=== PATIENT | female | born 1965 | race Caucasian/White ===

== ENCOUNTER 2019-04-29 12:53 | Inpatient (IN) | payer OTHER ==
[~2019-04-29] VITALS: Ht 165.1 cm; Wt 82.9 kg
[2019-04-29 13:26] LABS: BASOPHILS # (AUTO) 0.02 x10^3/uL (0-0.1); BASOPHILS % (AUTO) 0 % (0-1); EOSINOPHILS # (AUTO) 0.02 x10^3/uL (0-0.4); EOSINOPHILS % (AUTO) 0 % (1-7); LYMPHOCYTES # (AUTO) 1.18 x10^3/uL (1-3.4); LYMPHOCYTES % (AUTO) 24 % (22-44); MD NO; MEAN CORPUSCULAR HGB CONC 34.5 g/dL (32.4-35.8); MEAN CORPUSCULAR VOLUME 89.8 fL (80-100); MEAN PLATELET VOLUME 7.9 fL (7.4-10.4); MONOCYTES # (AUTO) 0.25 x10^3/uL (0.2-0.8); MONOCYTES % (AUTO) 5 % (2-9); NEUTROPHILS # (AUTO) 3.38 x10^3/uL (1.8-6.8); NEUTROPHILS % (AUTO) 70 % (42-75); PLATELET COUNT 214 x10^3/uL (130-400); RED BLOOD COUNT 3.84 x10^6/uL (3.82-5.3)
[2019-04-29] MEDS ORDERED: SODIUM CHLORIDE FLUSH 10ML SYR IVF ONE (13:30)
--- NOTE | 2019-04-29 13:32 | NUR ---
IT INFRASTRUCTURE CONSULTANT: PT TO ROOM FROM [facility]
[2019-04-29 13:34] LABS: ALANINE AMINOTRANSFERASE 17 U/L (12-78); ALBUMIN 2.9 g/dL (3.4-5.0); ANION GAP 4 mmol/L (5-15); CALCIUM 8.3 mg/dL (8.5-10.1); CHLORIDE 111 mmol/L (98-107); CREATININE 0.98 mg/dL (0.55-1.02)
--- NOTE | 2019-04-29 13:36 | NUR ---
PT PRESENTED TO [facility] WITH GI BLEED X 3 TODAY. PT HAD A COLONSCOPY ON MONDAY. PT WITH BRIGHT RED BLOOD IN STOOL. PT A&OX4. PT PLACED IN ROOM AND PLACED ON BP AND CONT. PULSE OXIMETER. ASSESSMENT COMPLETED. AWAITING MD. CALL LIGHT IN REACH
[2019-04-29 13:37] LABS: ALKALINE PHOSPHATASE 71 U/L (45-117); BILIRUBIN,TOTAL 0.4 mg/dL (0.2-1.0); TOTAL PROTEIN 6.4 g/dL (6.4-8.2)
[2019-04-29] MEDS ORDERED: OMEP40CA6 PO (13:44)
[2019-04-29] MEDS ORDERED: AMIT10TA PO (13:44)
[2019-04-29] MEDS ORDERED: OXYB5TAB PO (13:45)
[2019-04-29] MEDS ORDERED: CETI1TAB6 PO (13:45)
[2019-04-29 14:21] LABS: MICROSCOPIC AUTO
[2019-04-29 14:23] LABS: CULTURE INDICATED? YES
--- NOTE | 2019-04-29 14:35 | NUR ---
IV NEEDED FOR CT
--- NOTE | 2019-04-29 14:51 | NUR ---
PT UOB TO BATHROOM X3, PASSING BLOOD RECTALLY. ONE EPISODE WAS A LARGE AMOUNT. MD SINHA
[2019-04-29] MEDS ORDERED: OMNIPAQUE 350 MG/ML, 100ML BOTTLE ONE (15:14)
--- NOTE | 2019-04-29 15:18 | NUR ---
CT COMPLETED. NO DISTRESS
[2019-04-29 15:50] LABS: CLOSTRIDIUM DIFFICILE ANTIGEN POSITIVE; CLOSTRIDIUM DIFFICILE TOXIN NEGATIVE (Negative)
--- NOTE | 2019-04-29 16:14 | NUR ---
ISO CART IN PLACE AND COMMODE PLACED IN ROOM. PT GIVEN HANDOUT ON CDIFF
[2019-04-29] MEDS ORDERED: METRONIDAZOLE PMX 500MG/100ML 100 ML IV ONE (16:30)
--- NOTE | 2019-04-29 16:37 | NUR ---
PROVIDED SNACK AND DRINKS AFTER MD OK. PT AWARE OF INTENTION TO ADMIT
[2019-04-29] MEDS ORDERED: METRONIDAZOLE PMX 500MG/100ML 100 ML ONE (16:38)
[2019-04-29] MEDS ORDERED: morphine SULFATE 10 MG/ML, 1ML IVPush PRN (18:00)
[2019-04-29] MEDS ORDERED: ONDANSETRON 2MG/ML, 2ML IVPush PRN (18:00)
[2019-04-29] MEDS ORDERED: ACETAMINOPHEN 325 MG TABLET PO PRN (18:00)
[2019-04-29] MEDS ORDERED: LABETALOL 5MG/ML, 20ML IVPush PRN (18:00)
[2019-04-29] MEDS ORDERED: hydrALAzine 20 MG/ML, 1ML IVPush PRN (18:00)
[2019-04-29] MEDS ORDERED: HYDROcodone/APAP 5/325 TABLET PO PRN (18:00)
--- NOTE | 2019-04-29 18:01 | NUR ---
REPORT TO JOSEPH FU. PT TO BE TRANSPORTED TO FLOOR
[2019-04-29 18:50] VITALS: BP 104/65
[2019-04-29] MEDS: CETIRIZINE HCL PO SCH (21:00)
[2019-04-29] MEDS: [UNRECOGNIZED DRUG - OTHER] PO SCH (21:00)
[2019-04-29] MEDS: PSEUDOEPHEDRINE PO SCH (21:00)
[2019-04-29] MEDS: AMITRIPTYLINE 10 MG TABLET PO SCH (21:34)
[2019-04-29] MEDS: CALCIUM CARBONATE 500 MG TABLET PO SCH (21:34)
[2019-04-29] MEDS: OXYBUTYNIN CHLORIDE 5 MG TABLET PO SCH (21:34)
[2019-04-29] MEDS: VANCOMYCIN 50 MG/ML ORAL SUSP PO SCH (21:35)
[2019-04-29] MEDS: OMEPRAZOLE 20 MG CAPSULE.DR PO SCH (21:35)
[2019-04-29] MEDS: POTASSIUM CHLORIDE 20 MEQ in LACTATED RINGERS 1,000 ML IV SCH (21:39)
[2019-04-29] MEDS ORDERED: GOLYTELY 4,000ML ORAL.SOL PO ONE (22:00)
[2019-04-30 01:16] VITALS: BP 129/80
[2019-04-30] MEDS: VANCOMYCIN 50 MG/ML ORAL SUSP PO SCH ×4 (03:17→22:27)
[2019-04-30 06:01] LABS: BASOPHILS # (AUTO) 0.02 x10^3/uL (0-0.1); BASOPHILS % (AUTO) 0 % (0-1); EOSINOPHILS # (AUTO) 0.09 x10^3/uL (0-0.4); EOSINOPHILS % (AUTO) 2 % (1-7); LYMPHOCYTES % (AUTO) 34 % (22-44); MD NO; MEAN CORPUSCULAR HEMOGLOBIN 29.9 pg (27.0-34.8); MEAN CORPUSCULAR HGB CONC 33.9 g/dL (32.4-35.8); MEAN CORPUSCULAR VOLUME 88.3 fL (80-100); MEAN PLATELET VOLUME 7.6 fL (7.4-10.4); MONOCYTES # (AUTO) 0.53 x10^3/uL (0.2-0.8); MONOCYTES % (AUTO) 11 % (2-9); NEUTROPHILS # (AUTO) 2.54 x10^3/uL (1.8-6.8); NEUTROPHILS % (AUTO) 53 % (42-75); PLATELET COUNT 195 x10^3/uL (130-400); RED BLOOD COUNT 3.73 x10^6/uL (3.82-5.3); RED CELL DISTRIBUTION WIDTH 12.2 % (9.6-15.2)
[2019-04-30 06:06] LABS: ALBUMIN 2.7 g/dL (3.4-5.0); ANION GAP 5 mmol/L (5-15); CALCIUM 8.3 mg/dL (8.5-10.1); CHLORIDE 112 mmol/L (98-107)
[2019-04-30 06:08] LABS: CREATININE 0.83 mg/dL (0.55-1.02)
[2019-04-30 06:09] LABS: ALANINE AMINOTRANSFERASE 15 U/L (12-78); ALKALINE PHOSPHATASE 64 U/L (45-117); BILIRUBIN,TOTAL 0.2 mg/dL (0.2-1.0)
[2019-04-30] MEDS: POTASSIUM CHLORIDE 20 MEQ in LACTATED RINGERS 1,000 ML IV SCH ×2 (07:17→22:27)
[2019-04-30 08:25] VITALS: BP 104/60
[2019-04-30] MEDS: [UNRECOGNIZED DRUG - OTHER] PO SCH ×2 (09:00→21:00)
[2019-04-30] MEDS: CETIRIZINE HCL PO SCH ×2 (09:00→21:00)
[2019-04-30] MEDS: PSEUDOEPHEDRINE PO SCH ×2 (09:00→21:00)
[2019-04-30] MEDS: OXYBUTYNIN CHLORIDE 5 MG TABLET PO SCH ×2 (09:23→22:27)
[2019-04-30] MEDS: CALCIUM CARBONATE 500 MG TABLET PO SCH ×2 (09:23→22:28)
[2019-04-30] MEDS ORDERED: FENTANYL PF 100 MCG/2ML ONE ×2 (12:30)
[2019-04-30] MEDS ORDERED: MIDAZOLAM 1 MG/ML, 5ML ONE ×2 (12:30→12:31)
[2019-04-30] MEDS ORDERED: EPINEPHRINE SYRINGE 0.1 MG/ML, 10ML ONE (14:46)
[2019-04-30 14:50] VITALS: BP 116/71
[2019-04-30 19:13] VITALS: BP 115/71
[2019-04-30] MEDS: AMITRIPTYLINE 10 MG TABLET PO SCH (22:28)
[2019-04-30] MEDS: OMEPRAZOLE 20 MG CAPSULE.DR PO SCH (22:28)
[2019-05-01 02:51] VITALS: BP 108/64
[2019-05-01] MEDS: VANCOMYCIN 50 MG/ML ORAL SUSP PO SCH ×4 (05:05→23:07)
[2019-05-01 05:24] LABS: ALANINE AMINOTRANSFERASE 14 U/L (12-78); ALBUMIN 2.7 g/dL (3.4-5.0); ANION GAP 5 mmol/L (5-15); CALCIUM 8.6 mg/dL (8.5-10.1); CHLORIDE 107 mmol/L (98-107); CREATININE 0.76 mg/dL (0.55-1.02)
[2019-05-01 05:26] LABS: ALKALINE PHOSPHATASE 66 U/L (45-117); BILIRUBIN,TOTAL 0.2 mg/dL (0.2-1.0)
[2019-05-01 05:31] LABS: BASOPHILS # (AUTO) 0.02 x10^3/uL (0-0.1); BASOPHILS % (AUTO) 0 % (0-1); EOSINOPHILS # (AUTO) 0.08 x10^3/uL (0-0.4); EOSINOPHILS % (AUTO) 1 % (1-7); LYMPHOCYTES # (AUTO) 1.18 x10^3/uL (1-3.4); LYMPHOCYTES % (AUTO) 15 % (22-44); MD NO; MEAN CORPUSCULAR HEMOGLOBIN 29.6 pg (27.0-34.8); MEAN CORPUSCULAR HGB CONC 33.3 g/dL (32.4-35.8); MEAN CORPUSCULAR VOLUME 89.1 fL (80-100); MONOCYTES # (AUTO) 0.54 x10^3/uL (0.2-0.8); MONOCYTES % (AUTO) 7 % (2-9); NEUTROPHILS # (AUTO) 5.98 x10^3/uL (1.8-6.8); NEUTROPHILS % (AUTO) 77 % (42-75); PLATELET COUNT 191 x10^3/uL (130-400); RED BLOOD COUNT 3.82 x10^6/uL (3.82-5.3); RED CELL DISTRIBUTION WIDTH 12.1 % (9.6-15.2)
[2019-05-01 08:30] VITALS: BP 113/75
[2019-05-01] MEDS: [UNRECOGNIZED DRUG - OTHER] PO SCH ×2 (09:00→21:00)
[2019-05-01] MEDS: CETIRIZINE HCL PO SCH ×2 (09:00→21:00)
[2019-05-01] MEDS: PSEUDOEPHEDRINE PO SCH ×2 (09:00→21:00)
[2019-05-01] MEDS: OXYBUTYNIN CHLORIDE 5 MG TABLET PO SCH ×2 (09:59→21:11)
[2019-05-01] MEDS: CALCIUM CARBONATE 500 MG TABLET PO SCH ×2 (09:59→21:11)
[2019-05-01] MEDS: FAMOTIDINE 20 MG TABLET PO SCH ×2 (13:41→21:11)
[2019-05-01 14:49] VITALS: BP 107/72
[2019-05-01] MEDS ORDERED: POTASSIUM CHLORIDE 20 MEQ in LACTATED RINGERS 1,000 ML IV SCH (17:48)
[2019-05-01] MEDS ORDERED: SUMATRIPTAN 100 MG TABLET ONE (17:50)
[2019-05-01] MEDS ORDERED: SUMATRIPTAN 100 MG TABLET PO PRN (18:00)
[2019-05-01 19:19] VITALS: BP 125/78
[2019-05-01] MEDS: AMITRIPTYLINE 10 MG TABLET PO SCH (21:11)
[2019-05-02 01:39] VITALS: BP 114/76
[2019-05-02 05:00] LABS: BASOPHILS # (AUTO) 0.02 x10^3/uL (0-0.1); BASOPHILS % (AUTO) 0 % (0-1); EOSINOPHILS # (AUTO) 0.11 x10^3/uL (0-0.4); EOSINOPHILS % (AUTO) 2 % (1-7); LYMPHOCYTES # (AUTO) 1.49 x10^3/uL (1-3.4); LYMPHOCYTES % (AUTO) 21 % (22-44); MD NO; MEAN CORPUSCULAR HEMOGLOBIN 30.6 pg (27.0-34.8); MEAN CORPUSCULAR VOLUME 90.2 fL (80-100); MEAN PLATELET VOLUME 8.1 fL (7.4-10.4); MONOCYTES # (AUTO) 0.61 x10^3/uL (0.2-0.8); MONOCYTES % (AUTO) 9 % (2-9); NEUTROPHILS % (AUTO) 69 % (42-75); PLATELET COUNT 199 x10^3/uL (130-400); RED BLOOD COUNT 3.88 x10^6/uL (3.82-5.3); RED CELL DISTRIBUTION WIDTH 12.2 % (9.6-15.2)
[2019-05-02 05:12] LABS: ALANINE AMINOTRANSFERASE 15 U/L (12-78); ALBUMIN 2.5 g/dL (3.4-5.0); ANION GAP 8 mmol/L (5-15); CALCIUM 8.4 mg/dL (8.5-10.1); CHLORIDE 108 mmol/L (98-107); CREATININE 0.96 mg/dL (0.55-1.02)
[2019-05-02 05:15] LABS: ALKALINE PHOSPHATASE 62 U/L (45-117); BILIRUBIN,TOTAL 0.5 mg/dL (0.2-1.0); TOTAL PROTEIN 6.3 g/dL (6.4-8.2)
[2019-05-02] MEDS: VANCOMYCIN 50 MG/ML ORAL SUSP PO SCH ×2 (05:44→12:22)
[2019-05-02] MEDS: CETIRIZINE HCL PO SCH (09:00)
[2019-05-02] MEDS: PSEUDOEPHEDRINE PO SCH (09:00)
[2019-05-02] MEDS: [UNRECOGNIZED DRUG - OTHER] PO SCH (09:00)
[2019-05-02 09:34] VITALS: BP 104/65
[2019-05-02] MEDS: OXYBUTYNIN CHLORIDE 5 MG TABLET PO SCH (09:47)
[2019-05-02] MEDS: FAMOTIDINE 20 MG TABLET PO SCH (09:48)
[2019-05-02] MEDS ORDERED: FAMO20TA7 PO (10:50)
[2019-05-02] MEDS ORDERED: VANC1VIA3 PO (10:50)
[2019-05-02 14:02] VITALS: BP 116/74
== END 2019-05-02 14:12 | disposition home or self-care (01) | DRG 920 ==
LOC: ED 14:54 → EDIP 16:26 → 3NE 18:37
PROVIDERS: ADMIT Internal Medicine; ATTEND Internal Medicine
PROC: 0DBE8ZX Excision of Large Intestine, Via Natural or Artificial Opening Endoscopic, Diagnostic (ICD-10-PCS; 2019-04-30)
PROC: 0W3P8ZZ Control Bleeding in Gastrointestinal Tract, Via Natural or Artificial Opening Endoscopic (ICD-10-PCS; principal; 2019-04-30 15:00)
DX: K91.840 Postprocedural hemorrhage of a digestive system organ or structure following a digestive system procedure (principal); A04.72 Enterocolitis due to Clostridium difficile, not specified as recurrent; E44.1 Mild protein-calorie malnutrition; D62 Acute posthemorrhagic anemia; K21.9 Gastro-esophageal reflux disease without esophagitis; E83.51 Hypocalcemia; K57.30 Diverticulosis of large intestine without perforation or abscess without bleeding; N30.90 Cystitis, unspecified without hematuria; R73.9 Hyperglycemia, unspecified; Y83.8 Other surgical procedures as the cause of abnormal reaction of the patient, or of later complication, without mention of misadventure at the time of the procedure; Z87.891 Personal history of nicotine dependence; Z86.010 Personal history of colon polyps; Z80.0 Family history of malignant neoplasm of digestive organs; Z68.30 Body mass index [BMI] 30.0-30.9, adult; Z88.1 Allergy status to other antibiotic agents; Z79.899 Other long term (current) drug therapy; Z90.49 Acquired absence of other specified parts of digestive tract; Z90.721 Acquired absence of ovaries, unilateral
CPT/HCPCS: 36415; 99285; J3370; 74177; 80053; 81001; 85014; 85018; 85025; 87086; 87324; 87493; 88305; 89055; 96374; 99152; 99153; G0378; J2250; J3010; J3480; Q9967; A4648; J7120